=== PATIENT | female | born 1955 | race African-American/Black ===

== ENCOUNTER → 2021-10-05 | Day surgery (SDC) | payer OTHER | END | disposition home or self-care (01) | LOC: JRADIR 09:46 | PROVIDERS: ATTEND Otolaryngology | PROC: 0G9H3ZX Drainage of Right Thyroid Gland Lobe, Percutaneous Approach, Diagnostic (ICD-10-PCS; principal; 2021-10-05) | PROC: BG44ZZZ Ultrasonography of Thyroid Gland (ICD-10-PCS; 2021-10-05) | DX: E04.1 Nontoxic single thyroid nodule (principal) | CPT/HCPCS: 10005; 76942; 88173; 88305-TC ==